=== PATIENT | male | born 1985 | race Caucasian/White ===

== ENCOUNTER 2017-02-03 06:07 | Emergency (ER) | payer OTHER ==
[2017-02-03] MEDS ORDERED: LORazepam TAB(*) 1 MG PO ONE (07:28)
[2017-02-03] MEDS ORDERED: Ketorolac INJ* 60 MG/2 ML VIAL IM ONE (07:28)
[2017-02-03 08:53] VITALS: BP 135/74
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
== END 2017-02-03 08:53 | disposition home or self-care (01) ==
LOC: ED 06:07
DX: S39.012A Strain of muscle, fascia and tendon of lower back, initial encounter (principal); M54.30 Sciatica, unspecified side; F17.200 Nicotine dependence, unspecified, uncomplicated; Z88.5 Allergy status to narcotic agent
CPT/HCPCS: 96372; 99282; A9270-GY; J1885

== ENCOUNTER 2018-01-27 16:15 | Emergency (ER) | payer OTHER ==
--- NOTE | 2018-01-27 17:25 | ED ---
Lower Extremity - HPI Summary HPI Summary: 32-year-old female presents since right ankle injury on Friday. He states that he fell off the stairs. He inverted his ankle. Has history of issues with ankle. He has been using a gel splint was has been helping. Has large amount of edema to the area. No numbness or tingling. No knee pain. States pain radiates into his foot. No other injury. is able to ambulate on the area. - History of Current Complaint Chief Complaint: EDExtremityLower Stated Complaint: RT FT INJURY Time Seen by Provider: 01/27/18 16:38 Pain Intensity: 5 - Allergies/Home Medications Allergies/Adverse Reactions: Allergies Allergy/AdvReac Type Severity Reaction Status Date / Time MS Oxycodone [From Percocet] Allergy Nausea Verified 02/03/17 06:19 PMH/Surg Hx/FS Hx/Imm Hx Endocrine/Hematology History: Denies: Hx Anticoagulant Therapy, Hx Diabetes, Hx Thyroid Disease Cardiovascular History: Denies: Hx Hypertension, Hx Pacemaker/ICD Respiratory History: Reports: Other Respiratory Problems/Disorders - strep throat prior to 02/16/16 admission Denies: Hx Asthma, Hx Chronic Obstructive Pulmonary Disease (COPD) GI History: Denies: Hx Ulcer History: Denies: Hx Dialysis, Hx Renal Disease Neurological History: Denies: Hx Dementia, Hx Seizures Psychiatric History: Denies: Hx Substance Abuse - Surgical History Surgery Procedure, Year, and Place: Left ear drum replacement. Intestinal Surgery - Immunization History Date of Tetanus Vaccine: unk Date of Influenza Vaccine: none Infectious Disease History: No Infectious Disease History: Reports: History Other Infectious Disease - strep + prior to admission Denies: Hx Clostridium Difficile, Hx Hepatitis, Hx Human Immunodeficiency Virus (HIV), Hx of Known/Suspected MRSA, Hx Shingles, Traveled Outside the [place] in Last 30 Days - Family History Known Family History: Negative: Cardiac Disease, Hypertension, Diabetes - Social History Alcohol Use: Rare Hx Substance Use: No Substance Use Type: Reports: None Hx Tobacco Use: Yes Smoking Status (MU): Current Some Day Smoker Review of Systems Negative: Fever Negative: Chest Pain Negative: Shortness Of Breath Positive: Myalgia - right ankle pain All Other Systems Reviewed And Are Negative: Yes Physical Exam Triage Information Reviewed: Yes Vital Signs On Initial Exam: Initial Vitals Temp Pulse Resp BP Pulse Ox 97.8 F 87 18 163/68 97 01/27/18 16:21 01/27/18 16:21 01/27/18 16:21 01/27/18 16:21 01/27/18 16:21 Vital Signs Reviewed: Yes Appearance: Positive: Well-Appearing Skin: Positive: Warm, Dry Head/Face: Positive: Normal Head/Face Inspection Eyes: Positive: Normal, Conjunctiva Clear ENT: Positive: Pharynx normal Respiratory/Lung Sounds: Positive: Clear to Auscultation, Breath Sounds Present Cardiovascular: Positive: Normal, RRR Musculoskeletal: Positive: Limited @ - right ankle, Edema Right - ankle, Other - tenderness greatest over lateral malleolus right ankle, good pulses, sensation grossly intact Neurological: Positive: Normal Psychiatric: Positive: Normal Diagnostics - Vital Signs Vital Signs Temp Pulse Resp BP Pulse Ox 01/27/18 16:21 97.8 F 87 18 163/68 97 - Laboratory Lab Statement: Any lab studies that have been ordered have been reviewed, and results considered in the medical decision making process. - Radiology ankle Radiology Interpretation Completed By: Radiologist Summary of Radiographic Findings: IMPRESSION: SOFT TISSUE SWELLING AND SMALL AVULSION FRACTURE FRAGMENT LIKELY ARISING FROM. THE LATERAL TALUS. foot Radiology Interpretation Completed By: Radiologist Summary of Radiographic Findings: IMPRESSION: SOFT TISSUE SWELLING, NO FRACTURE IS SEEN. Lower Extremity Course/Dx - Course Course Of Treatment: 32-year-old female presents since right ankle injury on Friday. He states that he fell off the stairs. He inverted his ankle. Has history of issues with ankle. He has been using a gel splint was has been helping. Has large amount of edema to the area. No numbness or tingling. No knee pain. States pain radiates into his foot. No other injury. is able to ambulate on the area. on exam tenderness over lateral malleolus. X-ray shows avulsion fracture. will place in cam walking boot. Told to follow-up with ortho. Patient understands agrees plan. - Diagnoses Differential Diagnosis/HQI/PQRI: Positive: Fracture (Closed), Sprain, Strain Provider Diagnoses: Right ankle injury Discharge - Sign-Out/Discharge Documenting (check all that apply): Patient Departure - Discharge Plan Condition: Good Disposition: HOME Patient Education Materials: Ankle Sprain (ED) Referrals: Natali White MD [Primary Care Provider] - Tawana Brown MD [Medical Doctor] - Additional Instructions: Stay off ankle as much as possible Ice, elevate use boot as tolerated Ibuprofen or tyenlol every 6 hours for pain Follow up with ortho Return to ED if develop or any new or worsening symptoms - Billing Disposition and Condition Condition: GOOD Disposition: Home
[2018-01-27 17:53] VITALS: BP 132/77
== END 2018-01-27 17:49 | disposition home or self-care (01) ==
LOC: ED 16:15
DX: S92.141A Displaced dome fracture of right talus, initial encounter for closed fracture (principal); W10.9XXA Fall (on) (from) unspecified stairs and steps, initial encounter; Y92.9 Unspecified place or not applicable; F17.200 Nicotine dependence, unspecified, uncomplicated
CPT/HCPCS: 99282

== ENCOUNTER 2018-12-01 07:22 | Emergency (ER) | payer OTHER ==
[2018-12-01] MEDS ORDERED: Albuterol/Ipratropium NEB.SOL* Albuterol 2.5 MG/Ipratropium 0.5 MG 3 ML INH ONE (07:47)
--- NOTE | 2018-12-01 07:50 | ED ---
Respiratory - HPI Summary HPI Summary: Patient is a 33-year-old who presents emergency department for ongoing coughing 2 weeks. Patient states he was seen by her family doctor on the first and diagnosed with pneumonia and placed on azithromycin and Ventolin inhaler. Patient notes ongoing cough. Patient notes chest discomfort with coughing. Denies fever, chills, abdominal pain, vomiting, diarrhea, rash, neck pain. No past medical history. Daily smoker. Symptoms are mild in severity. No current modifying factors. - History of Current Complaint Chief Complaint: EDUpperRespComplaint Stated Complaint: PNEUMONIA PER PT Time Seen by Provider: 12/01/18 07:28 Hx Obtained From: Patient Pain Intensity: 10 - Allergy/Home Medications Allergies/Adverse Reactions: Allergies Allergy/AdvReac Type Severity Reaction Status Date / Time MS Oxycodone [From Percocet] Allergy Nausea Verified 02/03/17 06:19 Home Medications: Home Medications Albuterol HFA INHALER* [Ventolin HFA Inhaler*] 2 puff INH Q4H PRN 12/01/18 [ History Confirmed 12/01/18] PMH/Surg Hx/FS Hx/Imm Hx Previously Healthy: Yes Endocrine/Hematology History: Denies: Hx Anticoagulant Therapy, Hx Diabetes, Hx Thyroid Disease Cardiovascular History: Denies: Hx Hypertension, Hx Pacemaker/ICD Respiratory History: Reports: Other Respiratory Problems/Disorders - strep throat prior to 02/16/16 admission Denies: Hx Asthma, Hx Chronic Obstructive Pulmonary Disease (COPD) GI History: Denies: Hx Ulcer History: Denies: Hx Dialysis, Hx Renal Disease Neurological History: Denies: Hx Dementia, Hx Seizures Psychiatric History: Denies: Hx Substance Abuse - Surgical History Surgery Procedure, Year, and Place: Left ear drum replacement. Intestinal Surgery - Immunization History Date of Tetanus Vaccine: unk Date of Influenza Vaccine: none Infectious Disease History: No Infectious Disease History: Reports: History Other Infectious Disease - strep + prior to admission Denies: Hx Clostridium Difficile, Hx Hepatitis, Hx Human Immunodeficiency Virus (HIV), Hx of Known/Suspected MRSA, Hx Shingles, Traveled Outside the [place] in Last 30 Days - Family History Known Family History: Positive: Non-Contributory Negative: Cardiac Disease, Hypertension, Diabetes - Social History Occupation: Employed Full-time Lives: With Family Alcohol Use: Rare Hx Substance Use: No Substance Use Type: Reports: None Hx Tobacco Use: Yes Smoking Status (MU): Light Every Day Tobacco Smoker Review of Systems Constitutional: Negative Negative: Fever ENT: Negative Positive: Chest Pain Positive: Shortness Of Breath, Cough Gastrointestinal: Negative Negative: Abdominal Pain, Diarrhea Skin: Negative Negative: Rash Neurological: Negative All Other Systems Reviewed And Are Negative: Yes Physical Exam Triage Information Reviewed: Yes Vital Signs On Initial Exam: Initial Vitals Temp Pulse Resp BP Pulse Ox 96 F 74 19 150/89 97 12/01/18 07:23 12/01/18 07:23 12/01/18 07:23 12/01/18 07:23 12/01/18 07:23 Vital Signs Reviewed: Yes Appearance: Positive: Well-Appearing - Patient sitting on bed in no acute distress. Appears tired but nontoxic. Skin: Positive: Warm, Dry Head/Face: Positive: Normal Head/Face Inspection Eyes: Positive: Normal, EOMI, LITA ENT: Positive: Pharynx normal, TMs normal. Negative: Tonsillar swelling, Tonsillar exudate Neck: Positive: Supple Respiratory/Lung Sounds: Positive: Other - Diffuse expiratory wheeze throughout. No accessory muscle use. Cardiovascular: Positive: Normal, RRR. Negative: Murmur Neurological: Positive: Normal, CN Intact II-III Psychiatric: Positive: Affect/Mood Appropriate Procedures - Sedation Patient Received Moderate/Deep Sedation with Procedure: No Diagnostics - Vital Signs Vital Signs Temp Pulse Resp BP Pulse Ox 12/01/18 07:23 96 F 74 19 150/89 97 - Laboratory Lab Statement: Any lab studies that have been ordered have been reviewed, and results considered in the medical decision making process. Disposition - Course Course Of Treatment: Pt. with ongoing cough. He has diffuse wheezing on exam. Afebrile. O2 saturation 97% on RA. Pt. given duoneb. CXR negative for infiltrate per radiology. On re-exam wheezing has resolved and pt. is feeling better. Will start on a course of prednisone. Tessalon rx for cough. Advised pt. to use his albuterol inhaler 2 puffs every 4-6 hours. to avoid smoking. Close f.u with pcp and return to ER if sxs change or worsen. pt. understands and agrees with plan. - Differential Dx - Cardiopulmonary Differential Diagnoses - Cardiopulmonary: Bronchitis, Exacerbation Of COPD, Influenza, Lower Resp Infection - Diagnoses Provider Diagnoses: Bronchitis, Bronchospasm with bronchitis, acute Discharge ED - Sign-Out/Discharge Documenting (check all that apply): Patient Departure - Discharge Plan Condition: Improved Disposition: HOME Prescriptions: Benzonatate CAP* [Tessalon 100 MG CAP*] 100 mg PO TID PRN #12 cap PRN Reason: Cough predniSONE TAB* [Deltasone TAB*] 50 mg PO DAILY #5 tab Patient Education Materials: Acute Bronchitis (ED), Bronchospasm (ED) Referrals: Natali White MD [Primary Care Provider] - Additional Instructions: Follow up with PCP in 2-3 days for recheck Use inhaler 2 puffs every 4-6 hours Prednisone as directed Avoid smoking Return to ER if symptoms change or worsen - Billing Disposition and Condition Condition: IMPROVED Disposition: Home
--- OUTSIDE RECORDS SUMMARY | 2018-12-01 07:52 | XMS REPORT | Continuity of Care Document ---
:1985 External Reference #:[id number] Author Name Noemy Jackson M.D. (transmitted by agent of provider Joslyn Gresham) Address [address], [place] [address] Care Team Providers Name Role Phone Janes James MD - Otolaryngology Care Team Information Assignment Desk Editor Mali Suresh MD - Care Team Information Assignment Desk Editor [phone] Dermatology Natali White MD - Internal Care Team Information Assignment Desk Editor Medicine Problems Active Problems Provider Date Overweight Ginger Ortega M.D. Onset: 06/19/2012 Neck pain Ginger Ortega M.D. Onset: 06/19/2012 Backache Gingre Ortega M.D. Onset: 06/19/2012 Joint derangement Rik Junior MD Onset: 02/23/2018 Sprain of ankle Rik Junior MD Onset: 02/23/2018 Social History Type Date Description Comments Sex Unknown Tobacco Use Start: Unknown End: Former Cigarette Unknown Smoker Cigarette Use Quit - Age 20 ETOH Use 5-10 drinks per week 2012 increased to 10-30 drinks/week, now beer on weekends only, no legal issues Recreational Drug Use Never Used Drugs Tobacco Use Start: Unknown Patient is a current smoker, smokes every day Smoking Status Reviewed: 11/17/18 Patient is a current smoker, smokes every day Exercise Type/Frequency Exercises regularly Allergies, Adverse Reactions, Alerts Active Allergies Reaction Severity Comments Date Oxycodone Nausea and Vomiting Severe 11/09/2013 Inactive Allergies NKDA 04/18/2010 Medications Active Medications SIG Qnty Indications Ordering Provider Date Azithromycin take 2 tab on 6tabs J40 Noemy Jackson, 11/17/2018 250mg day 1 then 1 M.D. Tablets tab daily x 4 days Ventolin HFA inhale 2 puffs 18units R05 Noemy Jackson, 11/17/2018 108(90Base) by mouth four M.D. mcg/Act Aerosol times a day as needed Prednisone 3 tab daily x 3 QS R05 Noemy Jackson, 11/17/2018 10mg Tablets days and then 2 M.D. tab daily x 3 days 1 tab daily x 3 days Ibuprofen 2 tabs as Unknown 200mg Tablets needed Immunizations CPT Code Status Date Vaccine Lot # [id number] Given 06/19/2012 Tdap - Tetanus/Diptheria/Acellular Pertussis [id number] Vital Signs Date Vital Result Comment 11/17/2018 11:02am Height 69 inches 5'9" Weight 190.00 lb Heart Rate 94 /min BP Systolic Sitting 132 mmHg BP Diastolic Sitting 85 mmHg Body Temperature 98.1 F O2 % BldC Oximetry 96 % BMI (Body Mass Index) 28.1 kg/m2 02/23/2018 3:19pm Height 69 inches 5'9" Weight 190.00 lb Heart Rate 88 /min BP Systolic Sitting 140 mmHg BP Diastolic Sitting 90 mmHg Pain Level 5 BMI (Body Mass Index) 28.1 kg/m2 Results Description No Information Available Procedures Description No Information Available Medical Devices Description No Information Available Encounters Description No Information Available Assessments Date Code Description Provider 11/17/2018 J40 Bronchitis, not specified as acute or chronic Noemy Jackson M.D. 11/17/2018 R05 Cough Noemy Jackson M.D. 11/17/2018 F17.210 Nicotine dependence, cigarettes, Noemy Jackson M.D. uncomplicated Plan of Treatment 11/17/2018 - Noemy Jackson M.D.J40 Bronchitis, not specified as acute or chronicNew Medication:Azithromycin 250 mg - take 2 tab on day 1 then 1 tab daily x 4 daysR05 CoughNew Medication:Ventolin HFA 108(90 Base) mcg/Act - inhale 2 puffs by mouth four times a day as neededPrednisone 10 mg - 3 tab daily x 3 days and then 2 tab daily x 3 days 1 tab daily x 3 daysF17.210 Nicotine dependence, cigarettes, uncomplicatedComments:we discussed different options to help quit smoking , you are inclined to use the nicotine replacement , I would suggest to use the patch and if it does not work , you can try nicotrol inhalerFollow up:annual physical exam in [address] White Functional Status Description No Information Available Mental Status Description No Information Available Referrals Description No Information Available
[2018-12-01 09:32] VITALS: BP 140/90
== END 2018-12-01 09:31 | disposition home or self-care (01) ==
LOC: ED 07:22
DX: J20.9 Acute bronchitis, unspecified (principal); Z88.5 Allergy status to narcotic agent; F17.200 Nicotine dependence, unspecified, uncomplicated
CPT/HCPCS: 71046; 99282; A9270-GY